=== PATIENT | male | born 1930 | race Caucasian/White ===

== ENCOUNTER 2016-06-06 19:06 | Emergency (ER) | payer OTHER, MEDICARE ==
[~2016-06-06 19:06] MED LIST: AMOXIL500 MG PO; AUGMENTIN 500M500 MG PO; AUGMENTIN 875875 MG PO; BENAZEPRIL HYDR1 TA1 PO; CALCIUM + D3 E1 EACH PO; CIPROFLOXACIN500 MG PO; FEOSOL325 MG PO; FINASTERIDE5 M1 PO; FISH OIL 1,0001 EACH PO; FLOMAX0.4 M1 PO; LOPRESSOR50 MG PO; LOVAZA1 GM PO; MACROBID 100 M100 MG PO; METOPROLOL SUCC50 M1 PO; TOPROL XL50 M1 PO
[2016-06-06 19:29] VITALS: BP 152/81
--- NOTE | 2016-06-06 19:51 | ED GI/GU/ABDOMINAL COMPLAINT ---
History of Present Illness General Chief Complaint: Male Genitourinary Problems Stated Complaint: PT C/O CATH CLOGGED Source: patient, old records Exam Limitations: no limitations Vital Signs & Intake/Output Vital Signs & Intake/Output Vital Signs Date Time Temp Pulse Resp B/P Pulse O2 O2 Flow FiO2 Ox Delivery Rate 06/06 1928 96.9 83 22 152/81 95 Allergies Coded Allergies: ciprofloxacin (From CIPRO) (UNKNOWN - PER PT DOESNT REMEMBER 08/13/15) Reconcile Medications Alendronate Sodium 70 MG TABLET 1 TAB PO QSUN BONES (Reported) in the morning, at least 30 minutes before the first food, beverage, or medication of the day Aspirin (Ecotrin*) 81 MG TABLET.DR 1 TAB PO DAILY HEART/BLOOD (Reported) Benazepril/Hydrochlorothiazide (Benazepril-Hctz 10-12.5 MG Tab) 10 MG-12.5 MG TABLET 0.5 TAB PO DAILY BP (Reported) Calcium/Vitamin D (Calcium + D) (Unknown Strength) TAB (Unknown Dose) PO QAM SUPPLEMENT (Reported) Finasteride 5 MG TABLET 1 TAB PO QPM PROSTATE (Reported) Iron (Feosol) 65 MG TAB 1 TAB PO QAM ANEMIA (Reported) Metoprolol Succ XL (Toprol XL 25MG) 50 MG TAB.ER.24H 1 TAB PO QAM BP ( Reported) Prednisone 1 MG TABLET 4 TAB PO DAILY STEROID (Reported) SALMON OIL/OMEGA-3 FATTY ACIDS (Fish Oil 500 MG Softgel) 500 MG-100 MG CAPSULE 1 CAP PO QAM SUPPLEMENT (Reported) TAMSULOSIN HCL (Tamsulosin Hydrochloride) 0.4 MG CAP.ER.24H 1 CAP PO QPM PROSTATE (Reported) Tizanidine HCl 2 MG TABLET 3 TAB PO QPM MUSCLE RELAXER (Reported) Triage Note: PER PT CATHETER IS CLOGGED. IN X 1 YR. LAST BAG EMTPY WAS 1500. LAST CHANGED 06/01/16. CHANGED BY DR. SUERO Triage Nurses Notes Reviewed? yes HPI: Patient is an 85-year-old male presents for evaluation of June catheter dysfunction. Patient emptied his catheter bag at approximately 3 PM. Approximately 1.5 hours later patient noticed that urine was leaking around the catheter and he developed suprapubic pain. Catheter was changed in the emergency department and pain has resolved. Urine is now flowing normally into the catheter bag. Pain is 0 out of 10. Patient denies fevers, chills, nausea, vomiting, back pain. Catheter was changed on June 01 and patient reports he has no point with his urologist in approximately 3 weeks. (DAKOTA PARHAM) Past History Travel History Traveled to [place] past 21 day No Medical History Any Pertinent Medical History? 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 No (DAKOTA PARHAM) Review of Systems Review of Systems Constitutional: Denies: chills, fever. Respiratory: Denies: short of breath. Cardiovascular: Denies: chest pain. GI: Denies: abdominal pain. Genitourinary: Reports: see HPI. Musculoskeletal: Denies: back pain, neck pain. Skin: Reports: no symptoms. Neurological/Psychological: Reports: no symptoms. Hematologic/Endocrine: Reports: no symptoms. Immunologic/Allergic: Reports: no symptoms. (DAKOTA PARHAM) Physical Exam Physical Exam General Appearance: well developed/nourished, alert, awake Head: atraumatic, normal appearance Eyes: Bilateral: normal appearance, PERRL, EOMI. Ears, Nose, Throat, Mouth: hearing grossly normal, moist mucous membrane Neck: normal inspection, supple, full range of motion Respiratory: normal breath sounds, chest non-tender, no respiratory distress, lungs clear Cardiovascular: regular rate/rhythm Gastrointestinal: soft, non-tender Male Genitals: YELLOW URINE FLOWING NORMALLY INTO CATHETER BAG. Back: normal inspection, normal range of motion, NO cva TENDERNESS Extremities: normal range of motion Neurologic/Psych: no motor/sensory deficits, awake, alert, oriented x 3 Skin: intact, normal color, warm/dry Core Measures ACS in differential dx? No Severe Sepsis Present: No Septic Shock Present: No (DAKOTA PARHAM) Progress Differential Diagnosis: urinary retention, obstructed June catheter, urinary tract infection, prostatitis Plan of Care: Orders Procedure Date/time Status CULTURE,URINE 06/06 1937 Active URINALYSIS 06/06 1937 Complete Laboratory Tests 06/06/161939: Urine Color YEL, Urine Clarity CLDY H, Urine pH 7.0, Ur Specific [place] 1.015, Urine Protein 30 H, Urine Ketones NEG, Urine Nitrite POS H, Urine Bilirubin NEG, Urine Urobilinogen 0.2, Ur Leukocyte Esterase LARGE H, Ur Microscopic SEDIMENT EXAMINED, Urine RBC 1-3, Urine WBC 25-50 H, Ur Epithelial Cells FEW, Urine Hemoglobin SMALL H, Urine Glucose NEG Microbiology 06/06 1939 URINE ROUT: Urine Culture - RECD June catheter draining appropriately after catheter change. No pain or tenderness on exam. Patient appears stable for discharge. Discussed with Dr. Ferreira. (DAKOTA PARHAM) Initial ED EKG: none (DAKOTA PARHAM) Departure Departure Time of Disposition: 1958 Disposition: HOME OR SELF CARE Condition: Stable Clinical Impression Primary Impression: Obstructed June catheter Qualifiers: Encounter type: initial encounter Qualified Code: T83.091A - Other mechanical complication of indwelling urethral catheter, initial encounter Referrals: SAMMIE YANEZ,HANG BERRY MD,[facility] (PCP/Family) Additional Instructions: Follow-up with your urologist as scheduled. Return to emergency department if abdominal pain, fevers, catheter is not flowing normally, or worsening of symptoms. Departure Forms: Customer Survey General Discharge Information (DAKOTA PARHAM) PA/CHIEF CONSTRUCTION INSPECTOR Co-Sign Statement Statement: ED Attending supervision documentation- [] I saw and evaluated the patient. I have also reviewed all the pertinent lab results and diagnostic results. I agree with the findings and the plan of care as documented in the PA's/CHIEF CONSTRUCTION INSPECTOR's documentation. [X] I have reviewed the ED Record and agree with the PA's/CHIEF CONSTRUCTION INSPECTOR's documentation. [] Additions or exceptions (if any) to the PAs/CHIEF CONSTRUCTION INSPECTOR's note and plan are summarized below: [] (AEDLE YANEZ,RENATE Bangura
[2016-06-06] MEDS ORDERED: PREDNISONE1 MG PO (19:56)
[2016-06-06] MEDS ORDERED: BENAZEPRIL-HCT1 EAC1 PO (19:56)
[2016-06-06] MEDS ORDERED: TIZANIDINE HCL2 M1 PO (19:57)
[2016-06-06] MEDS ORDERED: ALENDRONATE SOD70 M2 PO (19:57)
[2016-06-06] MEDS ORDERED: ASPIRIN EC81 M1 PO (19:58)
== END 2016-06-06 20:15 ==
LOC: ERH 19:06
DX: T83.091A Other mechanical complication of indwelling urethral catheter, initial encounter (principal); R33.9 Retention of urine, unspecified
CPT/HCPCS: 81001; 87086

== ENCOUNTER 2016-07-10 12:16 | Emergency (ER) | payer OTHER, MEDICARE ==
[~2016-07-10] VITALS: Ht 182.9 cm; Wt 86.2 kg
[~2016-07-10 12:16] MED LIST changes: +ALENDRONATE SOD70 M2 PO; +ASPIRIN EC81 M1 PO; +BENAZEPRIL-HCT1 EAC1 PO; +PREDNISONE1 MG PO; +TIZANIDINE HCL2 M1 PO
[2016-07-10 12:39] VITALS: BP 118/64
[2016-07-10] MEDS ORDERED: VITAMIN D31000 UNI2 PO (12:52)
[2016-07-10] MEDS ORDERED: VITAMIN B-121000 MC3 PO (12:52)
--- NOTE | 2016-07-10 13:06 | ED GI/GU/ABDOMINAL COMPLAINT ---
History of Present Illness General Chief Complaint: Male Genitourinary Problems Stated Complaint: CLOGGED CATHETER Source: patient Exam Limitations: no limitations Vital Signs & Intake/Output Vital Signs & Intake/Output Vital Signs Date Time Temp Pulse Resp B/P Pulse O2 O2 Flow FiO2 Ox Delivery Rate 07/10 1239 97.0 20 118/64 98 Room Air 07/10 1220 98.8 83 22 180/100 97 Room Air Allergies Coded Allergies: ciprofloxacin (From CIPRO) (UNKNOWN - PER PT DOESNT REMEMBER 08/13/15) Reconcile Medications Alendronate Sodium 70 MG TABLET 1 TAB PO QSUN BONES (Reported) in the morning, at least 30 minutes before the first food, beverage, or medication of the day Aspirin (Ecotrin*) 81 MG TABLET.DR 1 TAB PO DAILY HEART/BLOOD (Reported) Benazepril/Hydrochlorothiazide (Benazepril-Hctz 10-12.5 MG Tab) 10 MG-12.5 MG TABLET 0.5 TAB PO DAILY BP (Reported) Calcium Carb & Citrate/Vit D3 (Calcium + D3 ER Tablet) 600 MG CALCIUM-500 UNIT TABLET.ER 1 TAB PO DAILY SUPPLEMENT (Reported) Cholecalciferol (Vitamin D3) 1,000 UNIT TABLET 1 TAB PO DAILY SUPPLEMENT ( Reported) Cyanocobalamin (Vitamin B-12) 1,000 MCG TABLET 1 TAB PO DAILY SUPPLEMENT ( Reported) Ferrous Sulfate (Feosol) 325 MG (65 MG IRON) TABLET 1 TAB PO DAILY SUPPLEMENT (Reported) Finasteride 5 MG TABLET 1 TAB PO DAILY PROSTATE (Reported) Metoprolol Succ XL (Toprol Xl) 50 MG TAB 1 TAB PO DAILY HEART (Reported) [place]-3 Fatty Acids/Fish Oil (Fish Oil 1,000 MG Capsule) 340 MG-1,000 MG CAPSULE 1 CAP PO DAILY SUPPLEMENT (Reported) Prednisone 1 MG TABLET 5 TAB PO DAILY STEROID (Reported) Sulfamethoxazole/Trimethoprim (Bactrim 400-80 MG Tablet) 400 MG-80 MG TABLET 1 TAB PO BID PRN uti Tamsulosin HCl (Flomax) 0.4 MG CAP.ER.24H 1 CAP PO DAILY PROSTATE (Reported) Tizanidine HCl 2 MG TABLET 3 TAB PO QPM MUSCLE RELAXER (Reported) Triage Note: CHACON CATHETER CLOGGED SINCE 0600. PT STATES IT IS LEAKING ALSO. Triage Nurses Notes Reviewed? yes Onset: Gradual Duration: better, gone now Timing: single episode today Quality/Severity: fullness Severity Numbers: 6 Location: suprapubic Radiation: no radiation Prior Abdominal Problems: similar symptoms HPI: Patient is a 85-year-old male who presents to emergency room with Chacon catheter malfunction concerns of being clogged since 6 AM today. Patient has had 7-10 abdominal and suprapubic fullness since symptoms began. This is happened in the past with patient approximately one month ago similar event occurred in which patient had a change Chacon catheter in the ER and had no complications. Patient has follow-up appointment with his urologist this Monday Prior to being evaluated the Chacon catheter was changed by nursing staff without complications, nursing STATES THAT 500 mL of cloudy urine was PRODUCED. Patient currently on examination is asymptomatic without complaints has no abdominal pain no testicular pain no nausea vomiting fevers or chills. (CHRISTIANO HOWELL) Past History Travel History Traveled to [place] past 21 day No Medical History Any Pertinent Medical History? 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 No (CHRISTIANO HOWELL) Review of Systems Review of Systems Constitutional: Reports: no symptoms. EENTM: Reports: no symptoms. Respiratory: Reports: no symptoms. Cardiovascular: Reports: no symptoms. GI: Reports: see HPI. Genitourinary: Reports: see HPI. Musculoskeletal: Reports: no symptoms. Skin: Reports: no symptoms. Neurological/Psychological: Reports: no symptoms. Hematologic/Endocrine: Reports: no symptoms. Immunologic/Allergic: Reports: no symptoms. All Other Systems: Reviewed and Negative (CHRISTIANO HOWELL) Physical Exam Physical Exam General Appearance: no apparent distress, alert Gastrointestinal: normal bowel sounds, soft, non-tender Comments: Well-developed well-nourished person in no acute distress HEENT: Normal EENT exam, Neck: Supple, no lymphadenopathy, normal range of motion without pain or tenderness Back: Nontender, no CVA tenderness. Cardiovascular: Regular rate and rhythms no murmurs rubs or gallops, normal JVP Respiratory: Chest nontender. No respiratory distress.breath sounds clear to auscultation bilaterally Abdomen: Soft, nontender nondistended, no appreciable organomegaly. Normal bowel sounds. No ascites Extremity: No edema, no calf tenderness to palpation, normal and equal pulses. Neuro: Alert oriented x3, motor sensory normal, Skin: No appreciable rash on exposed skin, skin is warm and dry. Psych: Mood and affect is normal, memory and judgment is normal. Core Measures ACS in differential dx? No Severe Sepsis Present: No Septic Shock Present: No (CHRISTIANO HOWELL) Progress Differential Diagnosis: appendicitis, biliary colic, bowel obstruction, colon cancer, cholecystitis, diverticulitis, epididymitis, esophageal varices, gastritis, hepatitis, hernia, hemorrhoids, ischemic bowel, inflamm bowel dis, orchitis, pancreatitis, prostatitis, peptic ulcer, PUD/GERD, perforated viscous, pyelonephritis, SBO, STD, testicular torsion, ureterolithiasis, urinary retention, urethritis, UTI/pyelo, CLOGGED Chacon CATHETER Initial ED EKG: none (CHRISTIANO HOWELL) Plan of Care: Orders Procedure Date/time Status Chacon, Insertion/Removal/Asses 07/10 1353 Active CULTURE,URINE 07/10 1306 Active URINALYSIS 07/10 1306 Complete Laboratory Tests 07/10/16 1310: Urinalysis MANY H, Urine Color YEL, Urine Clarity HAZY H, Urine pH 7.5, Ur Specific [place] 1.015, Urine Protein 100 H, Urine Ketones NEG, Urine Nitrite POS H, Urine Bilirubin NEG, Urine Urobilinogen 0.2, Ur Leukocyte Esterase LARGE H, Ur Microscopic SEDIMENT EXAMINED, Urine RBC 10-15 H, Urine WBC 25-50 H, Urine Hemoglobin MOD H, Urine Glucose NEG Microbiology 07/10 1310 URINE ROUT: Urine Culture - RECD (Prior to being and evaluated the Chacon catheter was changed by nursing staff patient currently on initial examination had no abdominal pain however upon presentation prior to change of catheter he had abdominal fullness most likely due to clogged Chacon catheter. URINE culture is pending. Discussed patient with Dr. Mane in which he agrees with disposition and plan (CHRISTIANO HOWELL) Departure Departure Disposition: HOME OR SELF CARE Condition: Stable Clinical Impression Primary Impression: Obstructed Chacon catheter Secondary Impressions: UTI (urinary tract infection) Referrals: SAMMIE YANEZ,HANG BERRY MD,[facility] (PCP/Family) Additional Instructions: As discussed follow-up with your establish UROLOGY appointment this Monday with Dr. COCHRAN. If symptoms worsen return to emergency room. BEGIN the prescription of Bactrim as directed for the full course. Prescription is waiting at [facility] pharmacy Departure Forms: Customer Survey General Discharge Information Prescriptions: Current Visit Scripts Sulfamethoxazole/Trimethoprim (Bactrim 400-80 MG Tablet) 1 TAB PO BID PRN uti #20 TAB (CHRISTIANO HOWELL) PA/ADULT EDUCATION INSTRUCTOR Co-Sign Statement Statement: ED Attending supervision documentation- [x] I saw and evaluated the patient. I have also reviewed all the pertinent lab results and diagnostic results. I agree with the findings and the plan of care as documented in the PA's/ADULT EDUCATION INSTRUCTOR's documentation. [] I have reviewed the ED Record and agree with the PA's/ADULT EDUCATION INSTRUCTOR's documentation. [] Additions or exceptions (if any) to the PAs/ADULT EDUCATION INSTRUCTOR's note and plan are summarized below: [] Resident Co-Sign Statement Statement: ED Attending supervision documentation- [] I saw and evaluated the patient. I have also reviewed all the pertinent lab results and diagnostic results. I agree with the findings and the plan of care as documented in the Resident's documentation. [] I have reviewed the ED Record and agree with the Resident's documentation. [] Additions or exceptions (if any) to the Resident's note and plan are summarized below: [] (WENDY YANEZ,ETHEL Haskins)
[2016-07-10] MEDS ORDERED: BACTRIM 400-801 EACH PO (13:49)
== END 2016-07-10 14:18 ==
LOC: ERH 12:16
DX: T83.098A Other mechanical complication of other urinary catheter, initial encounter (principal); N39.0 Urinary tract infection, site not specified
CPT/HCPCS: 81001; 87086

== ENCOUNTER 2016-07-28 11:08 | Emergency (ER) | payer OTHER, MEDICARE ==
[~2016-07-28] VITALS: Ht 182.9 cm; Wt 88.9 kg
[~2016-07-28 11:08] MED LIST changes: +BACTRIM 400-801 EACH PO; +VITAMIN B-121000 MC3 PO; +VITAMIN D31000 UNI2 PO
[2016-07-28 12:34] LABS: ABSOLUTE BASOPHIL COUNT 0 /CUMM (0.0-0.2); ABSOLUTE EOSINOPHIL COUNT 0.1 /CUMM (0.0-0.7); ABSOLUTE GRANULOCYTE CT 5.1 /CUMM (1.4-6.5); ABSOLUTE LYMPH COUNT 0.5 /CUMM (1.2-3.4); ABSOLUTE MONOCYTE COUNT 0.6 /CUMM (0.10-0.60); BASOPHIL % 0 % (0.0-2.0); EOSINOPHIL % 1.1 % (0-5); GRANULOCYTE % 81.2 % (42.2-75.2); HEMATOCRIT 35.3 % (42-52); MEAN CORPUSCULAR HGB 29.4 PG (27.0-31.0); MEAN CORPUSCULAR HGB CONC 33.8 G/DL (33.0-37.0); MEAN CORPUSCULAR VOLUME 86.8 FL (80.0-94.0); MEAN PLATELET VOLUME 8.9 FL (7.4-10.4); PLATELET COUNT 146 /CUMM (130-400); RED BLOOD CELL CT 4.07 /CUMM (4.70-6.10); WHITE BLOOD CELL COUNT 6.3 /CUMM (4.8-10.8)
--- NOTE | 2016-07-28 13:05 | ED DYSPNEA/ASTHMA COMPLAINT ---
History of Present Illness General Chief Complaint: Dyspnea (COPD, CHF, Other) Stated Complaint: SOB Source: patient Exam Limitations: no limitations Vital Signs & Intake/Output Vital Signs & Intake/Output Vital Signs Date Time Temp Pulse Resp B/P Pulse O2 O2 Flow FiO2 Ox Delivery Rate 07/28 1432 98.6 76 18 138/84 96 Room Air 07/28 1340 95 07/28 1117 96.8 62 18 145/75 93 Room Air Allergies Coded Allergies: ciprofloxacin (From CIPRO) (UNKNOWN - PER PT DOESNT REMEMBER 08/13/15) Reconcile Medications Albuterol Sulfate (Proair Hfa) 90 MCG HFA.AER.AD 2 PUF INH Q4-6 PRN PRN WHEEZING Alendronate Sodium 70 MG TABLET 1 TAB PO QSUN BONES (Reported) in the morning, at least 30 minutes before the first food, beverage, or medication of the day Aspirin (Ecotrin*) 81 MG TABLET.DR 1 TAB PO DAILY HEART/BLOOD (Reported) Azithromycin 250 MG TABLET 1 DP PO AD BRONCHITIS 2 the first day followed by 1 for days 2-5 Benazepril/Hydrochlorothiazide (Benazepril-Hctz 10-12.5 MG Tab) 10 MG-12.5 MG TABLET 0.5 TAB PO DAILY BP (Reported) Calcium Carb & Citrate/Vit D3 (Calcium + D3 ER Tablet) 600 MG CALCIUM-500 UNIT TABLET.ER 1 TAB PO DAILY SUPPLEMENT (Reported) Cholecalciferol (Vitamin D3) 1,000 UNIT TABLET 1 TAB PO DAILY SUPPLEMENT ( Reported) Cyanocobalamin (Vitamin B-12) 1,000 MCG TABLET 1 TAB PO DAILY SUPPLEMENT ( Reported) Ferrous Sulfate (Feosol) 325 MG (65 MG IRON) TABLET 1 TAB PO DAILY SUPPLEMENT (Reported) Finasteride 5 MG TABLET 1 TAB PO DAILY PROSTATE (Reported) Metoprolol Succ XL (Toprol Xl) 50 MG TAB 1 TAB PO DAILY HEART (Reported) [place]-3 Fatty Acids/Fish Oil (Fish Oil 1,000 MG Capsule) 340 MG-1,000 MG CAPSULE 1 CAP PO DAILY SUPPLEMENT (Reported) Prednisone 1 MG TABLET 5 TAB PO DAILY STEROID (Reported) Prednisone 20 MG TABLET 2 TAB PO DAILY BRONCHITIS Tamsulosin HCl (Flomax) 0.4 MG CAP.ER.24H 1 CAP PO DAILY PROSTATE (Reported) Tizanidine HCl 2 MG TABLET 3 TAB PO QPM MUSCLE RELAXER (Reported) Triage Note: PT C/O FEELING SOB WITH NON PRODUCTIVE COUGH FOR 1 WEEK. PT STATES NOT ABLE TO BRING ANYTHING UP BUT COUGH DOES SOUND WET. PT REPORTS HAVING FEVER ON AND OFF. Triage Nurses Notes Reviewed? yes HPI: 85 yo male with cough for 4 days, 2 days of orthopnea w 2 pillows. mild sob.not much of an ambulator, no DUNCAN. non productive cough, no fever, no chills, no cp. no abd sx. mild LE edema. hx of PPM - interrogated on and is 'fine". no malaise, no chills, no diaphoresis, normal appetite. sx are mild. (DAKOTA JIMENES) Past History Travel History Traveled to [place] past 21 day No Medical History Any Pertinent Medical History? 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 No (DAKOTA JIMENES) Review of Systems Review of Systems Constitutional: Reports: see HPI. EENTM: Reports: no symptoms. Respiratory: Reports: see HPI. Cardiovascular: Reports: see HPI. GI: Reports: no symptoms. Genitourinary: Reports: no symptoms. Musculoskeletal: Reports: no symptoms. Skin: Reports: no symptoms. Neurological/Psychological: Reports: no symptoms. Hematologic/Endocrine: Reports: no symptoms. Immunologic/Allergic: Reports: no symptoms. All Other Systems: Reviewed and Negative (DAKOTA JIMENES) Physical Exam Physical Exam Respiratory: no respiratory distress Comments: Well-developed well-nourished person in no acute distress HEENT: Normal EENT exam, extraocular motion intact, no nystagmus. Pupils equally round and reactive to light. Nose is atraumatic. External auditory canal and Tympanic membranes clear. Pharynx normal. No swelling or edema. Neck: Supple, no lymphadenopathy, normal range of motion without pain or tenderness Back: Nontender, no CVA tenderness. Full range of motion Cardiovascular: Regular rate and rhythms no murmurs, very mildly elevated JVP Respiratory: Chest nontender. No respiratory distress. Breath sounds with rhonchi noted mild bilaterally and faint expiratory wheeze Abdomen: Soft, nontender nondistended, no appreciable organomegaly. Normal bowel sounds. No ascites Extremity: Trace bilateral pedal, pitting edema, no calf tenderness to palpation , normal and equal pulses. Neuro: Alert oriented x3, motor sensory normal, cranial nerves II through XII grossly intact. Skin: No appreciable rash on exposed skin, skin is warm and dry. Psych: Mood and affect is normal, memory and judgment is normal. Core Measures ACS in differential dx? Yes ASA ordered for poss ACS? No-ACS ruled out Severe Sepsis Present: No Septic Shock Present: No (CHIQUIS WOODSON,DAKOTA) Progress Differential Diagnosis: asthma, AMI, altitude sickness, bronchitis, costochondritis, CHF, COPD, musculoskeletal pain, pericarditis, pulmonary embolism, pneumonia, pneumothorax, rib fracture, unstable angina Plan of Care: Orders Procedure Date/time Status CULTURE,URINE 07/28 1307 Active URINALYSIS 07/28 1307 Complete BLOOD CULTURE 07/28 1215 Active TROPONIN LEVEL 07/28 1215 Complete LACTIC ACID 07/28 1215 Complete COMPREHENSIVE METABOLIC PANEL 07/28 1215 Complete CBC WITHOUT DIFFERENTIAL 07/28 1215 Complete B-TYPE NATRIURETIC PEP (BNP) 07/28 1215 Complete EKG 07/28 1109 Active Laboratory Tests 07/28/16 1515: Lactic Acid Cancelled 07/28/16 1410: Urinalysis LIGHT H, Urine Color YEL, Urine Clarity HAZY H, Urine pH 8.0, Ur Specific [place] 1.015, Urine Protein TRACE H, Urine Ketones NEG, Urine Nitrite POS H, Urine Bilirubin NEG, Urine Urobilinogen 0.2, Ur Leukocyte Esterase TRACE H, Ur Microscopic SEDIMENT EXAMINED, Urine RBC 10-15 H, Urine WBC RARE, Urine Crystals RARE TRIPPHOS, Urine Bacteria FEW H, Urine Hemoglobin MOD H, Urine Glucose NEG 07/28/16 1219: Anion Gap 10, Estimated GFR 41 L, BUN/Creatinine Ratio 25.6 H, Glucose 122 H, Lactic Acid 0.8, Calcium 10.4 H, Total Bilirubin 0.8, AST 28, ALT 36, Alkaline Phosphatase 59, Troponin I < 0.01, Tzq-[id number]-Aeulslgjkmp Pept 1600 H, Total Protein 7.1, Albumin 4.0, Globulin 3.1, Albumin/Globulin Ratio 1.3, CBC w Diff NO MAN DIFF REQ, RBC 4.07 L, MCV 86.8, MCH 29.4, RDW 16.0 H, MPV 8.9, Gran % 81.2 H, Lymphocytes % 7.8 L, Monocytes % 9.9 H, Eosinophils % 1.1, Basophils % 0 L, Absolute Granulocytes 5.1, Absolute Lymphocytes 0.5 L, Absolute Monocytes 0.6, Absolute Eosinophils 0.1, Absolute Basophils 0, PUBS MCHC 33.8 Microbiology 07/28 1410 URINE ROUT: Urine Culture - RECD 07/28 1216 BLOOD: Blood Culture - RECD 07/28 1214 BLOOD: Blood Culture - ORD Diagnostic Imaging: Viewed by Me: Radiology Read. Discussed w/RAD: Radiology Read. CXR Impression: PATIENT: CHRISTIANO HURD PRESENT AGE: 85 PATIENT ACCOUNT NO: [id number] : 29 LOCATION: [facility] ORDERING PHYSICIAN: DAKOTA WOODSON SERVICE DATE: 07/28/16 EXAM TYPE: RAD - XRY-CHEST XRAY, PA AND LATERAL EXAMINATION: XR CHEST CLINICAL INFORMATION: SOB and cough. COMPARISON: Chest 12/08/2014. TECHNIQUE: 2 views of the chest were obtained. FINDINGS: Both lungs are mildly hyperinflated but clear of acute pneumonic process. The heart size and pulmonary vascularity are normal. There are dual pacer electrodes in the right atrium and right ventricle. There are old healed left lower lateral rib fractures. IMPRESSION: Hyperinflated lungs without acute pneumonic process. No major change from 12/08/2014. DICTATED BY: CARISSA YANEZ,CORTNEY DATE/TIME DICTATED:07/28/161257 DIMENSIONAL INSPECTOR:DAINA DATE/TIME TRANSCRIBED:07/28/161257 CONFIDENTIAL, DO NOT COPY WITH Initial ED EKG: NSR, rate (65), RBBB, no ST T wave changes Prior EKG: unchanged Rhythm Strip: normal sinus rhythm Comments: Patient likely with bronchitis, we'll treat with antibiotics, up his prednisone for 5 days and placed on albuterol inhaler. He should return with worsening symptoms or follow up with his doctor if symptoms continue this week. He is comfortable, stable, heart failure workup is negative. He'll return with any worsening symptoms, he is not hypoxic or tachypnea or tachycardia. (DAKOTA JIMENES) Departure Departure Disposition: HOME OR SELF CARE Condition: Stable Clinical Impression Primary Impression: Bronchitis Referrals: COLEMAN BERRY MD (PCP/Family) Additional Instructions: Take antibiotics for your infection as directed. Use inhaler for wheezing and shortness of breath for times per day. Start prednisone for your chest congestion and shortness of breath. Use lohq-cla-lykifet multisystem cold medication as needed. Motrin and Tylenol as needed for fever. Drink plenty of fluids. Return or follow-up with your doctor if not better in the next 3-5 days or if you're having continued worsening fevers, nausea, vomiting, shortness of breath, abdominal pain, difficulty swallowing or drinking or worsening flulike illness. Departure Forms: Customer Survey General Discharge Information Prescriptions: Current Visit Scripts Prednisone 2 TAB PO DAILY #10 Albuterol Sulfate (Proair Hfa) 2 PUF INH Q4-6 PRN PRN WHEEZING #1 INHAL Azithromycin 1 DP PO AD #6 TAB 2 the first day followed by 1 for days 2-5 (DAKOTA JIMENES) PA/ELECTRONICS ENGINEERING MANAGER Co-Sign Statement Statement: ED Attending supervision documentation- [x] I saw and evaluated the patient. I have also reviewed all the pertinent lab results and diagnostic results. I agree with the findings and the plan of care as documented in the PA's/ELECTRONICS ENGINEERING MANAGER's documentation. [x] I have reviewed the ED Record and agree with the PA's/ELECTRONICS ENGINEERING MANAGER's documentation. [] Additions or exceptions (if any) to the PAs/ELECTRONICS ENGINEERING MANAGER's note and plan are summarized below: [] (ADELE YANEZ,RENATE Kate) Critical Care Note Critical Care Note Critical Care Time: non-applicable (DAKOTA JIMENES)
[2016-07-28] MEDS ORDERED: PROAIR HFA8.5 GM INH (14:02)
[2016-07-28] MEDS ORDERED: PREDNISONE20 M1 PO (14:02)
[2016-07-28] MEDS ORDERED: AZITHROMYCIN250 M1 PO (14:02)
--- NOTE | 2016-07-28 14:03 | RADIOLOGY REPORT ---
EXAMINATION: XR CHEST CLINICAL INFORMATION: SOB and cough. COMPARISON: Chest 12/08/2014. TECHNIQUE: 2 views of the chest were obtained. FINDINGS: Both lungs are mildly hyperinflated but clear of acute pneumonic process. The heart size and pulmonary vascularity are normal. There are dual pacer electrodes in the right atrium and right ventricle. There are old healed left lower lateral rib fractures. IMPRESSION: Hyperinflated lungs without acute pneumonic process. No major change from 12/08/2014.
[2016-07-28 14:32] VITALS: BP 138/84
== END 2016-07-28 14:39 ==
LOC: ERH 11:08
PROVIDERS: Physician Assistant Surgical
DX: J40 Bronchitis, not specified as acute or chronic (principal); I48.91 Unspecified atrial fibrillation
CPT/HCPCS: 81001; 87040; 87086; 93005; 93010

== ENCOUNTER 2016-08-14 12:52 | Emergency (ER) | payer OTHER, MEDICARE ==
[~2016-08-14] VITALS: Ht 182.9 cm; Wt 86.2 kg
[~2016-08-14 12:52] MED LIST changes: +AZITHROMYCIN250 M1 PO; +PREDNISONE20 M1 PO; +PROAIR HFA8.5 GM INH
--- NOTE | 2016-08-14 14:19 | ED GI/GU/ABDOMINAL COMPLAINT ---
History of Present Illness General Chief Complaint: Male Genitourinary Problems Stated Complaint: PAIN IN CHACON CATHETER Source: patient Exam Limitations: no limitations Vital Signs & Intake/Output Vital Signs & Intake/Output Vital Signs Date Time Temp Pulse Resp B/P Pulse O2 O2 Flow FiO2 Ox Delivery Rate 08/14 1501 97.1 80 20 109/59 97 Room Air 08/14 1319 96.5 68 16 143/78 100 Room Air Allergies Coded Allergies: ciprofloxacin (From CIPRO) (UNKNOWN - PER PT DOESNT REMEMBER 08/13/15) Reconcile Medications Albuterol Sulfate (Proair Hfa) 90 MCG HFA.AER.AD 2 PUF INH Q4-6 PRN PRN WHEEZING Alendronate Sodium 70 MG TABLET 1 TAB PO QSUN BONES (Reported) in the morning, at least 30 minutes before the first food, beverage, or medication of the day Aspirin (Ecotrin*) 81 MG TABLET.DR 1 TAB PO DAILY HEART/BLOOD (Reported) Azithromycin 250 MG TABLET 1 DP PO AD BRONCHITIS 2 the first day followed by 1 for days 2-5 Benazepril/Hydrochlorothiazide (Benazepril-Hctz 10-12.5 MG Tab) 10 MG-12.5 MG TABLET 0.5 TAB PO DAILY BP (Reported) Calcium Carb & Citrate/Vit D3 (Calcium + D3 ER Tablet) 600 MG CALCIUM-500 UNIT TABLET.ER 1 TAB PO DAILY SUPPLEMENT (Reported) Cholecalciferol (Vitamin D3) 1,000 UNIT TABLET 1 TAB PO DAILY SUPPLEMENT ( Reported) Cyanocobalamin (Vitamin B-12) 1,000 MCG TABLET 1 TAB PO DAILY SUPPLEMENT ( Reported) Ferrous Sulfate (Feosol) 325 MG (65 MG IRON) TABLET 1 TAB PO DAILY SUPPLEMENT (Reported) Finasteride 5 MG TABLET 1 TAB PO DAILY PROSTATE (Reported) Metoprolol Succ XL (Toprol Xl) 50 MG TAB 1 TAB PO DAILY HEART (Reported) [place]-3 Fatty Acids/Fish Oil (Fish Oil 1,000 MG Capsule) 340 MG-1,000 MG CAPSULE 1 CAP PO DAILY SUPPLEMENT (Reported) Prednisone 1 MG TABLET 5 TAB PO DAILY STEROID (Reported) Prednisone 20 MG TABLET 2 TAB PO DAILY BRONCHITIS Tamsulosin HCl (Flomax) 0.4 MG CAP.ER.24H 1 CAP PO DAILY PROSTATE (Reported) Tizanidine HCl 2 MG TABLET 3 TAB PO QPM MUSCLE RELAXER (Reported) Triage Note: PT TO ED FOR A "BROKEN CHACON" PT STATES ITS BEEN LEAKING SINCE 4 AM THIS MORNING "AND NOW MY PENIS HURTS". Triage Nurses Notes Reviewed? yes Onset: Abrupt Duration: constant Timing: single episode today Quality/Severity: fullness Severity Numbers: 7 Location: suprapubic Radiation: no radiation Prior Abdominal Problems: similar symptoms HPI: Patient is a 86-year-old male with a past medical history of neurogenic bladder with an indwelling Chacon catheter where he had it replaced earlier this week by his urologist Dr. COCHRAN where patient states that since 6 AM he is unable to reduce urine in his Chacon leg bag catheter where he has developed a gradual onset of suprapubic abdominal fullness. Denies any nausea vomiting fevers chills or back pain. Patient does state that this occurs quite often and symptoms feel very similar to Chacon catheter malfunction. It is noted by nursing that the Chacon was unsuccessful after multiple attempts of irrigation where A replacement was ordered for a new Chacon catheter. (CHRISTIANO HOWELL) Past History Travel History Traveled to [place] past 21 day No Medical History Any Pertinent Medical History? 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 No (CHRISTIANO HOWELL) Review of Systems Review of Systems Constitutional: Reports: no symptoms. EENTM: Reports: no symptoms. Respiratory: Reports: no symptoms. Cardiovascular: Reports: no symptoms. GI: Reports: see HPI, abdominal pain. Genitourinary: Reports: see HPI. Musculoskeletal: Reports: no symptoms. Skin: Reports: no symptoms. Neurological/Psychological: Reports: no symptoms. Hematologic/Endocrine: Reports: no symptoms. Immunologic/Allergic: Reports: no symptoms. All Other Systems: Reviewed and Negative (CHRISTIANO HOWELL) Physical Exam Physical Exam General Appearance: no apparent distress, alert, comfortable Gastrointestinal: normal bowel sounds, soft, MILD SUPRAPUBIC POINT TENDERNESS NOTED, Comments: HEENT: Normal EENT exam, Neck: Supple, no lymphadenopathy, normal range of motion without pain or tenderness Back: Nontender, no CVA tenderness Cardiovascular: Regular rate and rhythms no murmurs rubs or gallops, normal JVP Respiratory: Chest nontender. No respiratory distress.breath sounds clear to auscultation bilaterally Extremity: No edema, no calf tenderness to palpation, normal and equal pulses. Neuro: Alert oriented x3, motor sensory normal, Skin: No appreciable rash on exposed skin, skin is warm and dry. Psych: Mood and affect is normal, memory and judgment is normal. Core Measures ACS in differential dx? No Severe Sepsis Present: No Septic Shock Present: No (CHRISTIANO HOWELL) Progress Differential Diagnosis: AAA, appendicitis, biliary colic, bowel obstruction, colon cancer, cholecystitis, diverticulitis, epididymitis, gastritis, hepatitis, hernia, hemorrhoids, ischemic bowel, inflamm bowel dis, orchitis, pancreatitis, prostatitis, perforated viscous, pyelonephritis, SBO, testicular torsion, ureterolithiasis, urinary retention, urethritis, UTI/pyelo, CANCER, CHACON MALFUNCTION Plan of Care: Orders Procedure Date/time Status Chacon, Insertion/Removal/Asses 08/14 141 Active CULTURE,URINE 08/14 141 Active URINALYSIS 08/14 141 Complete Laboratory Tests 08/14/16 1431: Urinalysis MANY H, Urine Color YEL, Urine Clarity HAZY H, Urine pH 8.5 H, Ur Specific [place] 1.015, Urine Protein 100 H, Urine Ketones NEG, Urine Nitrite POS H, Urine Bilirubin NEG, Urine Urobilinogen 0.2, Ur Leukocyte Esterase LARGE H, Ur Microscopic SEDIMENT EXAMINED, Urine RBC 1-3, Urine WBC PACKD H, Urine Crystals 4+ TRIP PHOS H, Urine Bacteria MANY H, Urine Hemoglobin SMALL H, Urine Glucose NEG Microbiology 08/14 1419 URINE ROUT: Urine Culture - RECD The previously administered Chacon catheter was removed by nursing staff with no complications and a new one was placed in which patient had 200 mL of straw- colored urine produced patient had complete resolution of his presenting abdominal fullness. On reexamination of the patient he was asymptomatic and had nontender abdomen. 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 Patient at this time does not warrant emergent antibiotics Discussed disposition plan with Dr. Ferreira who agrees (CHRISTIANO HOWELL) Initial ED EKG: none (CHRISTIANO HOWELL) Departure Departure Disposition: HOME OR SELF CARE Condition: Stable Clinical Impression Primary Impression: Malfunction of Chacon catheter Referrals: JAMAL YANEZ,COLEMAN (PCP/Family) Additional Instructions: DISCUSSED CONTINUE ALL MEDICATIONS DIRECTED AND FOLLOW-UP WITH YOUR UROLOGIST. IF SYMPTOMS WORSEN RETURN TO EMERGENCY ROOM Departure Forms: Customer Survey General Discharge Information (CHRISTIANO HOWELL) PA/GAUGER DELIVERY Co-Sign Statement Statement: ED Attending supervision documentation- [X] I saw and evaluated the patient. I have also reviewed all the pertinent lab results and diagnostic results. I agree with the findings and the plan of care as documented in the PA's/GAUGER DELIVERY's documentation. [X] I have reviewed the ED Record and agree with the PA's/GAUGER DELIVERY's documentation. [] Additions or exceptions (if any) to the PAs/GAUGER DELIVERY's note and plan are summarized below: [] (ADELE YANEZ,RENATE Kate)
[2016-08-14 15:01] VITALS: BP 109/59
== END 2016-08-14 15:31 ==
LOC: ERH 12:52
DX: T83.091A Other mechanical complication of indwelling urethral catheter, initial encounter (principal)
CPT/HCPCS: 81001; 87086

== ENCOUNTER 2016-08-23 02:13 | Emergency (ER) | payer OTHER, MEDICARE ==
[~2016-08-23] VITALS: Ht 182.9 cm; Wt 86.2 kg
--- NOTE | 2016-08-23 02:27 | ED GI/GU/ABDOMINAL COMPLAINT ---
History of Present Illness General Chief Complaint: Male Genitourinary Problems Stated Complaint: CHACON CATH CLOGGED,AND PAIN Source: patient, old records Exam Limitations: no limitations Vital Signs & Intake/Output Vital Signs & Intake/Output Vital Signs Date Time Temp Pulse Resp B/P Pulse O2 O2 Flow FiO2 Ox Delivery Rate 08/23 0252 97 Room Air 08/23 0230 96.9 61 18 134/69 97 Room Air Allergies Coded Allergies: ciprofloxacin (From CIPRO) (UNKNOWN - PER PT DOESNT REMEMBER 08/13/15) Reconcile Medications Aspirin (Ecotrin*) 81 MG TABLET.DR 1 TAB PO DAILY HEART/BLOOD (Reported) Benazepril/Hydrochlorothiazide (Benazepril-Hctz 10-12.5 MG Tab) 10 MG-12.5 MG TABLET 0.5 TAB PO DAILY BP (Reported) Calcium Carb & Citrate/Vit D3 (Calcium + D3 ER Tablet) 600 MG CALCIUM-500 UNIT TABLET.ER 1 TAB PO DAILY SUPPLEMENT (Reported) Cholecalciferol (Vitamin D3) 1,000 UNIT TABLET 1 TAB PO DAILY SUPPLEMENT ( Reported) Cyanocobalamin (Vitamin B-12) 1,000 MCG TABLET 1 TAB PO DAILY SUPPLEMENT ( Reported) Ferrous Sulfate (Feosol) 325 MG (65 MG IRON) TABLET 1 TAB PO DAILY SUPPLEMENT (Reported) Finasteride 5 MG TABLET 1 TAB PO DAILY PROSTATE (Reported) Metoprolol Succ XL (Toprol Xl) 50 MG TAB 1 TAB PO DAILY HEART (Reported) [place]-3 Fatty Acids/Fish Oil (Fish Oil 1,000 MG Capsule) 340 MG-1,000 MG CAPSULE 1 CAP PO DAILY SUPPLEMENT (Reported) Prednisone 1 MG TABLET 5 TAB PO DAILY STEROID (Reported) Tamsulosin HCl (Flomax) 0.4 MG CAP.ER.24H 1 CAP PO DAILY PROSTATE (Reported) Tizanidine HCl 2 MG TABLET 3 TAB PO QPM MUSCLE RELAXER (Reported) Triage Nurses Notes Reviewed? yes HPI: Patient comes in because his [place] catheter is clogged. Patient states that it stopped draining this evening. Patient is feeling some suprapubic pressure sensation. Since the patient is constant. There is no radiation. He rates it as mild on the pain scale. There are no aggravating or mitigating factors. There is no nausea or vomiting. There are no fevers or chills. Past History Travel History Traveled to [place] past 21 day No Medical History Any Pertinent Medical History? 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 No Review of Systems Review of Systems Constitutional: Reports: no symptoms. Respiratory: Reports: no symptoms. Cardiovascular: Reports: no symptoms. GI: Reports: see HPI. Genitourinary: Reports: see HPI. Musculoskeletal: Reports: no symptoms. Neurological/Psychological: Reports: no symptoms. Immunologic/Allergic: Reports: no symptoms. Physical Exam Physical Exam General Appearance: well developed/nourished, alert, awake, anxious, mild distress Eyes: Bilateral: PERRL, EOMI. Neck: normal inspection, supple Respiratory: normal breath sounds, chest non-tender, no respiratory distress, lungs clear Cardiovascular: regular rate/rhythm, normal peripheral pulses Gastrointestinal: normal bowel sounds, soft, non-tender, no organomegaly Extremities: normal range of motion Neurologic/Psych: no motor/sensory deficits, awake, alert, oriented x 3, normal gait, normal mood/affect Core Measures ACS in differential dx? No Severe Sepsis Present: No Septic Shock Present: No Progress Differential Diagnosis: CLOGGED Chacon CATHETER Plan of Care: Attempt to flush, if unsuccessful replace Chacon catheter Initial ED EKG: none Departure Departure Disposition: HOME OR SELF CARE Condition: Stable Clinical Impression Primary Impression: Chacon catheter problem Referrals: SAMMIE YANEZ,HANG BERRY MD,COLEMAN (PCP/Family) Additional Instructions: RETURN FOR ANY CONCERNS Departure Forms: Customer Survey General Discharge Information
[2016-08-23 02:30] VITALS: BP 134/69
== END 2016-08-23 03:02 ==
LOC: ERH 02:13
DX: T83.098A Other mechanical complication of other urinary catheter, initial encounter (principal)

== ENCOUNTER 2016-09-03 05:24 | Emergency (ER) | payer OTHER, MEDICARE ==
[~2016-09-03] VITALS: Ht 182.9 cm; Wt 86.2 kg
--- NOTE | 2016-09-03 05:31 | ED GI/GU/ABDOMINAL COMPLAINT ---
History of Present Illness General Chief Complaint: Male Genitourinary Problems Stated Complaint: "PLUGGED UP SANTANA" Source: patient Exam Limitations: no limitations Vital Signs & Intake/Output Vital Signs & Intake/Output Vital Signs Date Time Temp Pulse Resp B/P Pulse O2 O2 Flow FiO2 Ox Delivery Rate 09/03 0552 97.8 83 18 169/78 96 Room Air Allergies Coded Allergies: ciprofloxacin (From CIPRO) (UNKNOWN - PER PT DOESNT REMEMBER 08/13/15) Reconcile Medications Aspirin (Ecotrin*) 81 MG TABLET.DR 1 TAB PO DAILY HEART/BLOOD (Reported) Benazepril/Hydrochlorothiazide (Benazepril-Hctz 10-12.5 MG Tab) 10 MG-12.5 MG TABLET 0.5 TAB PO DAILY BP (Reported) Calcium Carb & Citrate/Vit D3 (Calcium + D3 ER Tablet) 600 MG CALCIUM-500 UNIT TABLET.ER 1 TAB PO DAILY SUPPLEMENT (Reported) Cefuroxime Axetil (Cefuroxime) 500 MG TABLET 1 TAB PO BID urinary tract infection Cholecalciferol (Vitamin D3) 1,000 UNIT TABLET 1 TAB PO DAILY SUPPLEMENT ( Reported) Cyanocobalamin (Vitamin B-12) 1,000 MCG TABLET 1 TAB PO DAILY SUPPLEMENT ( Reported) Ferrous Sulfate (Feosol) 325 MG (65 MG IRON) TABLET 1 TAB PO DAILY SUPPLEMENT (Reported) Finasteride 5 MG TABLET 1 TAB PO DAILY PROSTATE (Reported) Metoprolol Succ XL (Toprol Xl) 50 MG TAB 1 TAB PO DAILY HEART (Reported) [place]-3 Fatty Acids/Fish Oil (Fish Oil 1,000 MG Capsule) 340 MG-1,000 MG CAPSULE 1 CAP PO DAILY SUPPLEMENT (Reported) Prednisone 1 MG TABLET 5 TAB PO DAILY STEROID (Reported) Tamsulosin HCl (Flomax) 0.4 MG CAP.ER.24H 1 CAP PO DAILY PROSTATE (Reported) Tizanidine HCl 2 MG TABLET 3 TAB PO QPM MUSCLE RELAXER (Reported) Triage Nurses Notes Reviewed? yes Onset: Gradual Duration: hour(s): Timing: recent history Quality/Severity: cramping Location: suprapubic Radiation: no radiation Activities at Onset: none Prior Abdominal Problems: similar symptoms Modifying Factors: Worsens With: other ("No urine is in the santana"). Associated Symptoms: "I can't pee." HPI: 86 yo gentleman, with indwelling santana for the past 2 weeks approximately, presents with obstruction of his santana. "I last had urine in my bladder at around 10 pm last night.... This morning there was no urine in the bag." He notes suprapubic pressure, but no fever, chills, abdominal pain. He is otherwise well. Past History Medical History Any Pertinent Medical History? 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 No Review of Systems Review of Systems Constitutional: Reports: no symptoms. EENTM: Reports: no symptoms. Respiratory: Reports: no symptoms. Cardiovascular: Reports: no symptoms. GI: Reports: no symptoms. Genitourinary: Reports: no symptoms. Musculoskeletal: Reports: no symptoms. Skin: Reports: no symptoms. Neurological/Psychological: Reports: no symptoms. Hematologic/Endocrine: Reports: no symptoms. Immunologic/Allergic: Reports: no symptoms. All Other Systems: Reviewed and Negative Physical Exam Physical Exam General Appearance: well developed/nourished, mild distress Head: atraumatic, normal appearance Eyes: Bilateral: normal appearance. Ears, Nose, Throat, Mouth: hearing grossly normal Neck: normal inspection, supple, full range of motion, normal alignment Respiratory: normal breath sounds, chest non-tender, no respiratory distress, quiet respiration, lungs clear Cardiovascular: regular rate/rhythm Gastrointestinal: normal bowel sounds, soft, mild suprapubic tenderness. no rebound. no guarding. Back: normal inspection Extremities: normal range of motion Neurologic/Psych: no motor/sensory deficits, awake, alert, oriented x 3 Core Measures ACS in differential dx? No Severe Sepsis Present: No Septic Shock Present: No Progress Differential Diagnosis: UTI/pyelo, prostatitis vs other. Plan of Care: Orders Procedure Date/time Status Santana, Insertion/Removal/Asses 09/03 533 Active CULTURE,URINE 09/03 533 Active URINALYSIS 09/03 533 Complete Current Medications Sig/Jazmin Start time Last Medication Dose Stop Time Status Admin Cephalexin 500 MG ONCE ONE 09/03 614 UNVr (Keflex 500MG Cap) 09/04 615 Laboratory Tests 09/03/16 0600: Urine Color YEL, Urine Clarity CLDY H, Urine pH 8.5 H, Ur Specific [place] 1.015, Urine Protein 100 H, Urine Ketones NEG, Urine Nitrite POS H, Urine Bilirubin NEG, Urine Urobilinogen 0.2, Ur Leukocyte Esterase LARGE H, Ur Microscopic SEDIMENT EXAMINED, Urine RBC RARE, Urine WBC 25-50 H, Ur Epithelial Cells RARE, Urine Crystals RARE TRIPPHOS, Urine Bacteria MANY H, Urine Hemoglobin SMALL H, Urine Glucose NEG Microbiology 09/03 599 URINE ROUT: Urine Culture - RECD Initial ED EKG: none Departure Departure Disposition: HOME OR SELF CARE Condition: Stable Clinical Impression Primary Impression: Obstructed Santana catheter Referrals: COLEMAN BERRY MD (PCP/Family) Departure Forms: Customer Survey General Discharge Information Prescriptions: Current Visit Scripts Cefuroxime Axetil (Cefuroxime) 1 TAB PO BID #20 TAB Comments 09/03/16, 6:15am... pt feeling well after new santana placed.... prior urine culture grew proteus, sensitive to cefazolin... gave keflex in ED and sent rx to [facility] for cefuroxime. Pt wishes to go home and will follow up with his urologist.
[2016-09-03 05:52] VITALS: BP 169/78
[2016-09-03] MEDS ORDERED: CEFUROXIME500 MG PO (06:11)
== END 2016-09-03 06:32 ==
LOC: ERH 05:24
DX: T83.098A Other mechanical complication of other urinary catheter, initial encounter (principal); R39.198 Other difficulties with micturition
CPT/HCPCS: 81001; 87086

== ENCOUNTER 2016-10-06 09:54 | Emergency (ER) | payer OTHER, MEDICARE ==
[~2016-10-06] VITALS: Ht 182.9 cm; Wt 86.2 kg
[~2016-10-06 09:54] MED LIST changes: +CEFUROXIME500 MG PO
[2016-10-06 13:02] VITALS: BP 123/59
--- NOTE | 2016-10-06 13:38 | ED GI/GU/ABDOMINAL COMPLAINT ---
History of Present Illness General Chief Complaint: General Adult Stated Complaint: PER PT "MY CHACON IS CLOGGED UP" Source: patient Exam Limitations: no limitations Vital Signs & Intake/Output Vital Signs & Intake/Output Vital Signs Date Time Temp Pulse Resp B/P B/P Pulse O2 O2 Flow FiO2 Mean Ox Delivery Rate 10/06 1302 98.2 75 18 123/59 97 Room Air 10/06 1003 98.6 100 18 112/69 98 Room Air Allergies Coded Allergies: ciprofloxacin (From CIPRO) (UNKNOWN - PER PT DOESNT REMEMBER 08/13/15) Reconcile Medications Aspirin (Ecotrin*) 81 MG TABLET.DR 1 TAB PO DAILY HEART/BLOOD (Reported) Benazepril/Hydrochlorothiazide (Benazepril-Hctz 10-12.5 MG Tab) 10 MG-12.5 MG TABLET 0.5 TAB PO DAILY BP (Reported) Calcium Carb & Citrate/Vit D3 (Calcium + D3 ER Tablet) 600 MG CALCIUM-500 UNIT TABLET.ER 1 TAB PO DAILY SUPPLEMENT (Reported) Cefuroxime Axetil (Cefuroxime) 500 MG TABLET 1 TAB PO BID urinary tract infection Cholecalciferol (Vitamin D3) 1,000 UNIT TABLET 1 TAB PO DAILY SUPPLEMENT ( Reported) Cyanocobalamin (Vitamin B-12) 1,000 MCG TABLET 1 TAB PO DAILY SUPPLEMENT ( Reported) Ferrous Sulfate (Feosol) 325 MG (65 MG IRON) TABLET 1 TAB PO DAILY SUPPLEMENT (Reported) Finasteride 5 MG TABLET 1 TAB PO DAILY PROSTATE (Reported) Metoprolol Succ XL (Toprol Xl) 50 MG TAB 1 TAB PO DAILY HEART (Reported) [place]-3 Fatty Acids/Fish Oil (Fish Oil 1,000 MG Capsule) 340 MG-1,000 MG CAPSULE 1 CAP PO DAILY SUPPLEMENT (Reported) Prednisone 1 MG TABLET 5 TAB PO DAILY STEROID (Reported) Tamsulosin HCl (Flomax) 0.4 MG CAP.ER.24H 1 CAP PO DAILY PROSTATE (Reported) Tizanidine HCl 2 MG TABLET 3 TAB PO QPM MUSCLE RELAXER (Reported) Triage Note: 86 YO MALE TO TRIAGE STATING THAT HIS CHACON IS "PLUGGED UP" STATE WAS DRAINING NORMALLY LAST NIGHT. C/O PAIN TO LOWER ABD AND GROIN AREA. STATES CHACON HAS BEEN IN PLACED FOR ABOUT A YEAR Triage Nurses Notes Reviewed? yes Onset: Gradual Duration: hour(s):, continues in ED, getting worse Quality/Severity: severe Location: suprapubic Radiation: no radiation Activities at Onset: none HPI: Patient presents for evaluation of suprapubic abdominal pain and clogged Chacon. Past History Travel History Traveled to [place] past 21 day No Medical History Any Pertinent Medical History? 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 No Review of Systems Review of Systems Constitutional: Reports: no symptoms. EENTM: Reports: no symptoms. Respiratory: Reports: no symptoms. Cardiovascular: Reports: no symptoms. GI: Reports: no symptoms. Genitourinary: Reports: see HPI. Musculoskeletal: Reports: no symptoms. Skin: Reports: no symptoms. Neurological/Psychological: Reports: no symptoms. Hematologic/Endocrine: Reports: no symptoms. Immunologic/Allergic: Reports: no symptoms. All Other Systems: Reviewed and Negative Physical Exam Physical Exam Gastrointestinal: see below Comments: Patient evaluated after Chacon catheter blockage resolved. Gen.: Well-nourished, well-developed, no acute respiratory distress. Head: Normocephalic, atraumatic. Eyes: Normal inspection bilaterally Ears: Normal inspection bilaterally Nose: Normal inspection Throat/mouth : Moist mucosa Neck: Supple, full range of motion, no goiter Heart: Regular rate and rhythm, no murmurs rubs or gallops Lungs: Clear to auscultation bilaterally with normal air entry Chest: Nontender Back: Normal range of motion Abdomen: Soft, nontender, nondistended, normal bowel sounds Extremities: Normal range of motion grossly, equal radial pulses, no cyanosis clubbing or edema Neurologic: Cranial nerves grossly intact, speech is clear Skin: warm and dry Psychiatric: Calm, cooperative, no apparent delusions or hallucinations Core Measures ACS in differential dx? No Severe Sepsis Present: No Septic Shock Present: No Progress Differential Diagnosis: urinary retention, Chacon catheter dysfunction Plan of Care: Continue current care Initial ED EKG: none Comments: 10/06/2016 1:37:05 PM patient is feeling much better with no abdominal pain currently. Abdomen is soft and nontender. The Chacon catheter is draining. Departure Departure Disposition: HOME OR SELF CARE Condition: Stable Clinical Impression Primary Impression: Obstructed Chacon catheter Secondary Impressions: Acute urinary retention Referrals: COLEMAN BERRY MD (PCP/Family) Additional Instructions: Follow up with your urologist this week. Return if any concerns or sudden worsening. Departure Forms: Customer Survey General Discharge Information
== END 2016-10-06 13:42 ==
LOC: ERH 09:54
DX: T83.091A Other mechanical complication of indwelling urethral catheter, initial encounter (principal); R33.9 Retention of urine, unspecified

== ENCOUNTER 2016-11-05 21:04 | Emergency (ER) | payer OTHER, MEDICARE ==
[2016-11-05 21:09] VITALS: BP 145/92
--- NOTE | 2016-11-05 21:37 | ED GI/GU/ABDOMINAL COMPLAINT ---
History of Present Illness General Chief Complaint: General Adult Stated Complaint: PT CHACON IS BLOCKED Source: patient Exam Limitations: no limitations Vital Signs & Intake/Output Vital Signs & Intake/Output Vital Signs Date Time Temp Pulse Resp B/P B/P Pulse O2 O2 Flow FiO2 Mean Ox Delivery Rate 11/05 2131 Room Air 11/059 97.8 88 22 145/92 98 ED Intake and Output 11/06 0000 11/05 1200 Intake Total Output Total 275 Balance -275 Output, Urine 275 Allergies Coded Allergies: ciprofloxacin (From CIPRO) (UNKNOWN - PER PT DOESNT REMEMBER 08/13/15) Reconcile Medications Aspirin (Ecotrin*) 81 MG TABLET.DR 1 TAB PO DAILY HEART/BLOOD (Reported) Benazepril/Hydrochlorothiazide (Benazepril-Hctz 10-12.5 MG Tab) 10 MG-12.5 MG TABLET 0.5 TAB PO DAILY BP (Reported) Calcium Carb & Citrate/Vit D3 (Calcium + D3 ER Tablet) 600 MG CALCIUM-500 UNIT TABLET.ER 1 TAB PO DAILY SUPPLEMENT (Reported) Cefuroxime Axetil (Cefuroxime) 500 MG TABLET 1 TAB PO BID urinary tract infection Cholecalciferol (Vitamin D3) 1,000 UNIT TABLET 1 TAB PO DAILY SUPPLEMENT ( Reported) Cyanocobalamin (Vitamin B-12) 1,000 MCG TABLET 1 TAB PO DAILY SUPPLEMENT ( Reported) Ferrous Sulfate (Feosol) 325 MG (65 MG IRON) TABLET 1 TAB PO DAILY SUPPLEMENT (Reported) Finasteride 5 MG TABLET 1 TAB PO DAILY PROSTATE (Reported) Metoprolol Succ XL (Toprol Xl) 50 MG TAB 1 TAB PO DAILY HEART (Reported) [place]-3 Fatty Acids/Fish Oil (Fish Oil 1,000 MG Capsule) 340 MG-1,000 MG CAPSULE 1 CAP PO DAILY SUPPLEMENT (Reported) Prednisone 1 MG TABLET 5 TAB PO DAILY STEROID (Reported) Tamsulosin HCl (Flomax) 0.4 MG CAP.ER.24H 1 CAP PO DAILY PROSTATE (Reported) Tizanidine HCl 2 MG TABLET 3 TAB PO QPM MUSCLE RELAXER (Reported) Triage Note: PER PT EMPTIED CHACON AT 1500 NO URINE SINCE LAST TIME IT WAS CHANGED WAS 3 WEEKS AGO. Triage Nurses Notes Reviewed? yes HPI: 86M with chronic Chacon secondary to BPH and chronic urinary retention comes in with blocked Chacon. No urine since 3pm in the afternoon. Prior to that patient was asymptomatic and felt well. He denies fever, chills, dysuria, abdominal pain. Past History Travel History Traveled to [place] past 21 day No Medical History Any Pertinent Medical History? 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 No Review of Systems Review of Systems Constitutional: Reports: no symptoms. EENTM: Reports: see HPI. Respiratory: Reports: no symptoms. Cardiovascular: Reports: no symptoms. GI: Reports: no symptoms. Genitourinary: Reports: see HPI. Musculoskeletal: Reports: no symptoms. Skin: Reports: no symptoms. Neurological/Psychological: Reports: no symptoms. Hematologic/Endocrine: Reports: no symptoms. Immunologic/Allergic: Reports: no symptoms. All Other Systems: Reviewed and Negative Physical Exam Physical Exam General Appearance: well developed/nourished, no apparent distress, alert, awake Head: atraumatic, normal appearance Eyes: Bilateral: normal appearance. Ears, Nose, Throat, Mouth: moist mucous membrane Neck: normal inspection, supple Respiratory: normal breath sounds, no respiratory distress Cardiovascular: regular rate/rhythm Gastrointestinal: soft, non-tender Back: normal inspection, normal range of motion Extremities: normal range of motion Neurologic/Psych: no motor/sensory deficits Core Measures ACS in differential dx? No Severe Sepsis Present: No Septic Shock Present: No Progress Differential Diagnosis: AAA, AMI, appendicitis, biliary colic, bowel obstruction , colon cancer, cholecystitis, diverticulitis, epididymitis, esophageal varices, gastritis, hepatitis, hernia, hemorrhoids, ischemic bowel, inflamm bowel dis, Reba-Trudy tear, orchitis, pancreatitis, prostatitis, peptic ulcer, PUD/GERD, perforated viscous, pyelonephritis, SBO, STD, testicular torsion, ureterolithiasis, urinary retention, urethritis, UTI/pyelo Plan of Care: Orders Procedure Date/time Status Chacon, Insertion/Removal/Asses 11/06 2123 Active CULTURE,URINE 11/06 2123 Active URINALYSIS 11/06 2123 Complete Laboratory Tests 11/05/162123: Urine Color YEL, Urine Clarity CLDY H, Urine pH 8.5 H, Ur Specific [place] 1.020, Urine Protein 100 H, Urine Ketones NEG, Urine Nitrite POS H, Urine Bilirubin NEG, Urine Urobilinogen 1.0, Ur Leukocyte Esterase LARGE H, Ur Microscopic SEDIMENT EXAMINED, Urine RBC 10-15 H, Urine WBC PACKD H, Ur Epithelial Cells RARE, Urine Crystals 1+ TRIP PHOS H, Urine Bacteria MANY H, Urine Hemoglobin LARGE H, Urine Glucose NEG Microbiology 11/06 2123 URINE ROUT: Urine Culture - RES GRAM NEGATIVE RODS CHACON CATHETER CHANGED WITH NORMAL FLOW FOLLOWING REPLACEMENT. URINE WAS FOUL SMELLING BUT PATIENT HAS NO SYMPTOMS OF UTI OR DELIRIUM. WILL DISCHARGE AND FOLLOW UP WITH UROLOGIST THIS WEEK SCHEDULED. (MARIANO YANEZ,HANS) Initial ED EKG: none Departure Departure Time of Disposition: 2151 Disposition: HOME OR SELF CARE Condition: Stable Clinical Impression Primary Impression: Obstructed Chacon catheter Secondary Impressions: Acute urinary retention Referrals: JAMAL YANEZ,COLEMAN (PCP/Family) Additional Instructions: FOLLOW UP WITH YOUR UROLOGIST ON MONDAY. IF YOU HAVE FEVER, CHILLS, OR BURNING URINARY PAIN, COME BACK TO EMERGENCY DEPARTMENT. CONTINUE YOUR HOME MEDICATIONS. Departure Forms: Customer Survey General Discharge Information
== END 2016-11-05 22:07 ==
LOC: ERH 21:04
DX: T83.091A Other mechanical complication of indwelling urethral catheter, initial encounter (principal)
CPT/HCPCS: 81001; 87086

== ENCOUNTER 2017-08-19 11:13 | Emergency (ER) | payer OTHER, MEDICARE ==
[~2017-08-19] VITALS: Ht 182.9 cm; Wt 86.2 kg
[~2017-08-19 11:13] MED LIST changes: +FUROSEMIDE80 M1 PO; +KEFLEX500 M1 PO; +OCUVITE SOFTGE1 EACH PO; +TAMSULOSIN HCL0.4 M1 PO; +ULORIC40 M1 PO
--- NOTE | 2017-08-19 12:18 | ED GI/GU/ABDOMINAL COMPLAINT ---
History of Present Illness General Chief Complaint: Male Genitourinary Problems Stated Complaint: ?CLOGGED CHACON Source: patient, old records Exam Limitations: no limitations Vital Signs & Intake/Output Vital Signs & Intake/Output Vital Signs Date Time Temp Pulse Resp B/P B/P Pulse O2 O2 Flow FiO2 Mean Ox Delivery Rate 08/19 1316 97.0 70 20 124/75 97 Room Air Room Air 08/19 1133 96.6 69 24 123/74 96 Allergies Coded Allergies: ciprofloxacin (From CIPRO) (UNKNOWN - PER PT DOESNT REMEMBER 08/13/15) Reconcile Medications Aspirin (Ecotrin*) 81 MG TABLET.DR 1 TAB PO DAILY HEART/BLOOD (Reported) Calcium Carb & Citrate/Vit D3 (Calcium + D3 ER Tablet) 600 MG CALCIUM-500 UNIT TABLET.ER 1 TAB PO DAILY SUPPLEMENT (Reported) Cephalexin (Keflex) 500 MG CAPSULE 1 CAP PO TID UTI Cholecalciferol (Vitamin D3) 1,000 UNIT TABLET 1 TAB PO DAILY SUPPLEMENT ( Reported) Cyanocobalamin (Vitamin B-12) 1,000 MCG TABLET 1 TAB PO DAILY SUPPLEMENT ( Reported) Febuxostat (Uloric) 40 MG TABLET 1 TAB PO DAILY GOUT (Reported) Ferrous Sulfate (Feosol) 325 MG (65 MG IRON) TABLET 1 TAB PO DAILY SUPPLEMENT (Reported) Finasteride 5 MG TABLET 1 TAB PO DAILY PROSTATE (Reported) Furosemide 80 MG TABLET 1 TAB PO DAILY DIURETIC (Reported) Metoprolol Succ XL (Toprol Xl) 50 MG TAB 1 TAB PO DAILY HEART (Reported) [place]-3 Fatty Acids/Fish Oil (Fish Oil 1,000 MG Capsule) 340 MG-1,000 MG CAPSULE 1 CAP PO DAILY SUPPLEMENT (Reported) Prednisone 1 MG TABLET 5 TAB PO DAILY STEROID (Reported) Sulfamethoxazole/Trimethoprim (Bactrim Ds Tablet) 800 MG-160 MG TABLET 1 TAB PO BID UTI Tamsulosin HCl 0.4 MG CAP.ER.24H 1 CAP PO QPM PROSTATE (Reported) Vit C/Vit E/Lutein/Min/[place]-3 (Ocuvite Softgel) 150 MG-30 UNIT-5 MG-150 MG CAPSULE 1 TAB PO DAILY SUPPLEMENT (Reported) Triage Note: PT PRESENTS TO THE ER, PT STATES "MU CHACON IS CLOGGED". PT STATES THAT HE CANT PEE AND THAT NO URINE IN BAG SINCE 6 AM THIS MORNING. PER PT THERE WAS VERY LITTLE FROM LAST NIGHT.. PT DID NOT TAKE HIS WATER PILL THIS AM. PT STATES HE HAS PAIN LOWER ABD AREA 8/10. PT STATES THAT HIS BLADDER DOES NOT EMPTY ON ITS OWN AND HAS HAD THE CHACON FOR MANY YEARS. PT STATES THAT HIS URINE HAS SMELLED LATELY/ Triage Nurses Notes Reviewed? yes Onset: Abrupt Duration: hour(s): (6), constant, continues in ED, getting worse Timing: recent history Quality/Severity: fullness Severity Numbers: 8 Location: suprapubic Radiation: no radiation Activities at Onset: none Prior Abdominal Problems: similar symptoms Past Sexual History: Unobtainable at this time No Modifying Factors: none HPI: 87-year-old male past medical history of atrial fibrillation, chronic indwelling Chacon due to neurogenic bladder, recurrent UTIs presented for evaluation of a clogged Chacon. Patient reports that when he woke up this morning he noted that urine was not draining into the bag. He reports suprapubic fullness and feeling like he needs to urinate. He said this happened multiple times in the past. He denies any hematuria fever. No urine coming around the sides of the Chacon. No back pain chest pain or shortness of breath. (Mega Sanchez) Past History Travel History Traveled to [place] past 21 day No Medical History Any Pertinent Medical History? 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 No (Mega Sanchez) Review of Systems Review of Systems Constitutional: Reports: no symptoms. EENTM: Reports: no symptoms. Respiratory: Reports: no symptoms. Cardiovascular: Reports: no symptoms. GI: Reports: see HPI, abdominal pain. Genitourinary: Reports: see HPI. Musculoskeletal: Reports: no symptoms. Skin: Reports: no symptoms. Neurological/Psychological: Reports: no symptoms. Hematologic/Endocrine: Reports: no symptoms. Immunologic/Allergic: Reports: no symptoms. All Other Systems: Reviewed and Negative (Mega Sanchez) Physical Exam Physical Exam General Appearance: well developed/nourished, no apparent distress, alert, awake Head: atraumatic, normal appearance Eyes: Bilateral: normal appearance, EOMI. Ears, Nose, Throat, Mouth: hearing grossly normal, moist mucous membrane Neck: normal inspection, supple, full range of motion Respiratory: normal breath sounds, chest non-tender, no respiratory distress, lungs clear Cardiovascular: regular rate/rhythm, normal peripheral pulses Peripheral Pulses: 2+ radial (R), 2+ radial (L) Gastrointestinal: soft, non-tender Male Genitals: normal genitalia Back: normal inspection, normal range of motion, no cvat Extremities: normal range of motion Neurologic/Psych: no motor/sensory deficits, awake, alert, oriented x 3, normal gait Skin: intact, normal color, warm/dry Core Measures ACS in differential dx? No Sepsis Present: No Sepsis Focused Exam Completed? No (Mega Sanchez) Progress Differential Diagnosis: ureterolithiasis, urinary retention, urethritis, UTI/ pyelo Plan of Care: Orders Procedure Date/time Status Chacon, Insertion/Removal/Asses 08/19 1130 Active CULTURE,URINE 08/19 1130 Active URINALYSIS 08/19 1130 Complete Laboratory Tests 08/19/17 1208: Urine Color YEL, Urine Clarity HAZY H, Urine pH 6.0, Ur Specific [place] 1.015, Urine Protein TRACE H, Urine Ketones NEG, Urine Nitrite NEG, Urine Bilirubin NEG, Urine Urobilinogen 0.2, Ur Leukocyte Esterase LARGE H, Ur Microscopic SEDIMENT EXAMINED, Urine RBC 15-25 H, Urine WBC PACKD H, Ur Epithelial Cells FEW, Urine Bacteria PACKD H, Urine Hemoglobin MOD H, Urine Glucose NEG Microbiology 08/19 1208 URINE ROUT: Urine Culture - RECD Patient seen and evaluated. Her initial evaluation appears that his [place] catheter is clogged. There is no urine flowing into the bag. This Chacon was removed and replaced large amount of urine was removed from the bladder. Patient reports complete resolution of suprapubic fullness after drainage. Urine is showing some signs of infection and there is a large amount of sediment in the urine. Patient be covered with antibiotics to prevent re-clogging of the Chacon catheter. Advised them to restaurant plenty of fluids monitor symptoms. Culture sent. Patient be started on Bactrim. Follow-up with urology discussed return precautions patient agrees the plan. Case discussed with Dr. Rodríguez she agrees. Initial ED EKG: none (Mega Sanchez) Departure Departure Disposition: HOME OR SELF CARE Condition: Stable Clinical Impression Primary Impression: Obstructed Chacon catheter Qualifiers: Encounter type: initial encounter Qualified Code: T83.091A - Other mechanical complication of indwelling urethral catheter, initial encounter Secondary Impressions: UTI (urinary tract infection) Qualifiers: Urinary tract infection type: site unspecified Hematuria presence: without hematuria Qualified Code: N39.0 - Urinary tract infection, site not specified Referrals: Beba Castanon MD (PCP/Family) Additional Instructions: Take antibiotics as directed for the full course. Monitor symptoms return with any concerns. Departure Forms: Customer Survey General Discharge Information Prescriptions: Current Visit Scripts Sulfamethoxazole/Trimethoprim (Bactrim Ds Tablet) 1 TAB PO BID #14 TAB (Mega Sanchez) PA/GEOPHYSICAL PROSPECTING SURVEYOR Co-Sign Statement Statement: ED Attending supervision documentation- [] I saw and evaluated the patient. I have also reviewed all the pertinent lab results and diagnostic results. I agree with the findings and the plan of care as documented in the PA's/GEOPHYSICAL PROSPECTING SURVEYOR's documentation. [X] I have reviewed the ED Record and agree with the PA's/GEOPHYSICAL PROSPECTING SURVEYOR's documentation. [] Additions or exceptions (if any) to the PAs/GEOPHYSICAL PROSPECTING SURVEYOR's note and plan are summarized below: [] (Marcos YANEZ,Jazlyn)
[2017-08-19] MEDS ORDERED: BACTRIM DS TAB1 EACH PO (12:50)
[2017-08-19 13:16] VITALS: BP 124/75
== END 2017-08-19 13:17 ==
LOC: ERH 11:13
DX: N39.0 Urinary tract infection, site not specified (principal); T83.091A Other mechanical complication of indwelling urethral catheter, initial encounter
CPT/HCPCS: 81001; 87086